=== PATIENT | male | born 2000 | race Caucasian/White ===

== ENCOUNTER 2024-04-05 08:14 | Day surgery (SDC) | payer OTHER ==
[~2024-04-05] VITALS: Ht 182.9 cm; Wt 99.1 kg
[~2024-04-05 08:14] MED LIST: FLUTISP
[2024-04-05] MEDS ORDERED: LR 1,000 ML IV SCH ×2 (09:05→15:00)
[2024-04-05] MEDS ORDERED: propofoL 200 MG/20 ML VIAL As Ordered ONE (12:06)
[2024-04-05] MEDS ORDERED: LIDOCAINE 2% 100MG/5ML SDV (FOR ANES.) As Ordered ONE (12:06)
[2024-04-05] MEDS ORDERED: SUGAMMADEX SODIUM 500 MG/5 ML VIAL (BRIDION) As Ordered ONE (12:07)
[2024-04-05] MEDS ORDERED: ONDANSETRON 4MG 2ML VIAL As Ordered ONE (12:07)
[2024-04-05] MEDS ORDERED: ROCURONIUM BROMIDE 50MG/5ML VIAL As Ordered ONE (12:08)
[2024-04-05] MEDS ORDERED: MIDAZOLAM INJ 2MG/2ML VIAL As Ordered ONE (12:15)
[2024-04-05] MEDS ORDERED: fentaNYL 100 MCG/2 ML INJECTION As Ordered ONE (12:16)
[2024-04-05] MEDS ORDERED: ACETAMINOPHEN 1000MG/100ML IV BAG As Ordered ONE (13:07)
[2024-04-05] MEDS: COCAINE 4% 4ML NASAL SOLUTION BTL As Ordered ONE (13:13)
[2024-04-05] MEDS: OXYMETAZOLINE 0.05% NASAL SPRAY (AFRIN) As Ordered ONE (13:23)
[2024-04-05] MEDS ORDERED: ePHEDrine SULFATE 25 MG/5 ML(5MG/ML) SYRINGE As Ordered ONE (13:28)
[2024-04-05] MEDS: LIDOCAINE W/EPINEPHRINE 1% 20ML VIAL As Ordered ONE (13:30)
[2024-04-05] MEDS ORDERED: fentaNYL 100 MCG/2 ML INJECTION IV PRN (14:15)
[2024-04-05] MEDS ORDERED: ONDANSETRON 4MG 2ML VIAL IV PRN (14:15)
[2024-04-05] MEDS: oxyCODONE 5MG TAB PO PRN (14:51)
[2024-04-05] MEDS ORDERED: ANEXSIA, NORCO 7.5MG/325MG TABLET(HYDROCODONE/APAP) PO PRN (15:00)
[2024-04-05 15:55] VITALS: BP 137/79; TEMP 97.1; O2SAT 97
== END 2024-04-05 16:15 | disposition home or self-care (01) ==
LOC: M SDC 08:14
PROVIDERS: ATTEND Otolaryngology
DX: J34.2 Deviated nasal septum (principal); J34.3 Hypertrophy of nasal turbinates; F17.200 Nicotine dependence, unspecified, uncomplicated; Z79.51 Long term (current) use of inhaled steroids
CPT/HCPCS: 30140; 30520; C9143; J0131; J1100; J2250; J2405; J3010